=== PATIENT | female | born 1965 | race Caucasian/White ===

== ENCOUNTER 2020-12-13 09:59 | Outpatient (CLI) | payer MEDICAID, SELFPAY ==
--- NOTE | 2020-12-13 10:02 | CT_ITS ---
WS: [id number] CT ABDOMEN WITH CONTRAST HISTORY: ABDOMINAL MASS Contiguous single phase 5 mm axial imaging performed to the abdomen. Oral contrast has been provided. Coronal and sagittal reformats are submitted. All CT scans at [facility] use at least on e of these dose optimization techniques: automated exposure control; mA and/or kV adjustment per arlette ent size (includes targeted exams where dose is matched to clinical indication); or iterative reconst ruction. CONTRAST: Omnipaque 300; 95 mL IV. DLP: 866.72 mGycm COMPARISON: 12/12/2018 Lower thorax: Stable 5 mm nodule at the LEFT lung base. Heart size is normal. Small hiatal hernia. Liver: Mild hepatomegaly with moderate hepatic steatosis. No bile duct dilatation or mass. Gallbladder: Prior cholecystectomy. Pancreas: Normal. Spleen: Normal. Adrenals: Normal. Right kidney: Normal. Left kidney: Normal size kidney. Stable exophytic 10 mm nodule from the posterior superior kidney. No hydronephrosis or mass. Aorta: Mild atherosclerosis aorta. GI tract: Visualized GI tract within the abdomen is normal. There is mild constipation. No obstructiv e pattern. The appendix is visualized and normal. No adenopathy or free fluid. Abdominal wall: Large defect in the abdominal wall musculature measures 5.2 cm. Defect is above the u mbilicus contains omental fat only. Visualized osseous structures: Moderate degenerative disc disease at L5-S1. CT/CT abdomen w con* [id number] IMPRESSION: 1. Large supraumbilical abdominal wall hernia contains omental fat only. 2. Mild hepatomegaly with moderate hepatic steatosis. 3. Prior cholecystectomy.
[2020-12-13] MEDS: iohexol 300 mg/mL 50 mL Btl PO (10:42)
[2020-12-13] MEDS: iohexol 300 mg/mL 100 mL Btl IV (10:57)
== END 2020-12-13 10:00 | disposition home or self-care (01) ==
LOC: RADWPI 10:02
PROVIDERS: PCP Nurse Practitioner Family; Visit Provider Nurse Practitioner Family
DX: R19.00 Intra-abdominal and pelvic swelling, mass and lump, unspecified site (principal); K43.9 Ventral hernia without obstruction or gangrene; R16.0 Hepatomegaly, not elsewhere classified; K76.0 Fatty (change of) liver, not elsewhere classified; Z90.49 Acquired absence of other specified parts of digestive tract
CPT/HCPCS: 74160; Q9967

== ENCOUNTER 2021-01-11 14:43 | Outpatient (CLI) | payer MEDICAID, SELFPAY ==
--- NOTE | 2021-01-11 14:49 | MM_ITS ---
WS: [id number] BILATERAL SCREENING DIGITAL MAMMOGRAM WITH CAD HISTORY: SCREENING COMPARISON: 06/17/2019, 06/16/2018 and 06/08/2018 Bilateral CC and MLO views submitted. Computer aided detection analyzed. Breast composition: There are scattered areas of fibroglandular density. No suspicious masses, microc alcifications or architectural distortion. Lymph nodes in the upper outer quadrant of the LEFT breast have been stable since 2018. MM/[place] [id number] IMPRESSION: BI-RADS: 2-Benign FOLLOW UP: 1 Year Follow-up
== END 2021-01-11 14:44 | disposition home or self-care (01) ==
PROVIDERS: PCP Nurse Practitioner Family; Visit Provider Nurse Practitioner Family
DX: Z12.31 Encounter for screening mammogram for malignant neoplasm of breast (principal)
CPT/HCPCS: 77067

== ENCOUNTER 2021-06-18 16:23 | Emergency (ER) | payer MEDICAID, SELFPAY ==
[2021-06-18 16:29] VITALS: BP 160/87; PULSE 87; RESP 18; TEMP 37.1; O2SAT 99; BMI 40.3
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
--- NOTE | 2021-06-18 16:49 | CTR_ITS ---
PROCEDURE INFORMATION: Exam: CT Abdomen And Pelvis With Contrast Exam date and time: 06/18/2021 4:49 PM Age: 55 years old Clinical indication: Abdominal pain; Prior surgery; Additional info: Abd pain TECHNIQUE: Imaging protocol: Computed tomography of the abdomen and pelvis with contrast. Radiation optimization: All CT scans at this facility use at least one of these dose optimization techniques: automated exposure control; mA and/or kV adjustment per patient size (includes targeted exams where dose is matched to clinical indication); or iterative reconstruction. Contrast material: OMNI 300; Contrast volume: 95 ml; Contrast route: INTRAVENOUS (IV); COMPARISON: CT abdomen w con* [id number] 12/13/2020 10:52 AM RADIATION DOSE METRICS: Total DLP (mGy-cm): 1892.9 FINDINGS: Heart: The heart is partially visualized and there appears to be lipomatosis hypertrophy of the interatrial septum. Liver: Normal. No mass. Gallbladder and bile ducts: Cholecystectomy clips. No ductal dilation. Pancreas: Normal. No ductal dilation. Spleen: Normal. No splenomegaly. Adrenal glands: Normal. No mass. Kidneys and ureters: A few scattered probable subcentimeter cysts within both kidneys. No hydronephrosis. Stomach and bowel: Colonic diverticulosis predominantly centered within the left hemicolon. No evidence of diverticulitis. No evidence of bowel obstruction. Appendix: No evidence of appendicitis. Intraperitoneal space: Unremarkable. No free air. No significant fluid collection. Vasculature: Unremarkable. No abdominal aortic aneurysm. Lymph nodes: Unremarkable. No enlarged lymph nodes. Urinary bladder: Unremarkable as visualized. Reproductive: Unremarkable as visualized. Bones/joints: No acute fracture. Degenerative disc disease at L5-S1. Soft tissues: There is an 8.0 x 4.7 cm fat containing periumbilical hernia with the hernia neck measuring [address]/CT abdomen pelvis w con* [id number] IMPRESSION: 1. No acute findings. 2. Fat containing periumbilical hernia. COMMENTS: Consistent with the [employer]'s Incidental Findings Committee white paper (J Am Roma Radiol 2018): Any incidental renal lesion less than 1 cm or classified as too small to characterize, or any incidental cystic renal lesion characterized as simple-appearing, is likely benign. No follow-up imaging is recommended for these lesions per consensus recommendations based on imaging criteria. Radiation Dose CTDIVOL = (mGy): DLP = 1892.9 (mGy-cm)
--- NOTE | 2021-06-18 16:50 | USR_ITS ---
PROCEDURE INFORMATION: Exam: US Duplex Left Lower Extremity Veins, Limited Exam date and time: 06/18/2021 4:50 PM Age: 55 years old Clinical indication: Pain and injury or trauma; Fall; Other injury to vessels; Left; Lower extremity, lower leg level; Other superficial vein; Leg, lower; Additional info: Pain swelling TECHNIQUE: Imaging protocol: Real-time Duplex ultrasound of the Left Lower Extremity with 2-D sweet scale, color Doppler flow and spectral waveform analysis with image documentation. Limited exam focused on the left lower extremity veins. COMPARISON: CR (LOW EXM, ) 06/18/2021 4:55 PM FINDINGS: Left deep veins: Unremarkable. The common femoral, femoral, proximal profunda femoral and popliteal veins are patent without thrombus. Normal Doppler waveforms. Normal compressibility and/or augmentation response. Left superficial veins: Unremarkable. Saphenofemoral junction is patent without thrombus. Soft tissues: Unremarkable. US/[place] [id number] IMPRESSION: No evidence of deep vein thrombosis.
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
[2021-06-18 17:39] LABS: Basophils % 0.4 %; Eosinophils # 0.3 10^3/uL (0.0-0.8); Eosinophils % 2.9 %; Hematocrit 37.1 % (37.0-47.0); Hemoglobin 11.9 g/dL (11.5-15.3); Lymphocytes # 2.7 10^3/uL (0.8-4.8); Lymphocytes % 23.7 %; Mean Corpuscular HGB Conc 32.1 g/dL (30.0-36.0); Mean Corpuscular Hemoglobin 26.3 pg (28.0-34.0); Mean Corpuscular Volume 81.9 fl (81-99); Mean Platelet Volume 11.6 fL (7.4-10.4); Neutrophils # 7.22 10^3/uL (1.8-7.7); Neutrophils % 63.5 %; Nucleated Red Blood Cells % 0 %; Platelet Count 303 10^3/cmm (130-400); Red Blood Count 4.53 10^6/uL (4.1-5.3); Red Cell Distribution Width 14.3 % (12.1-15.1); White Blood Count 11.4 10^3/uL (4.0-10.0)
[2021-06-18] MEDS: tetanus-dipt-pertussis 0.5 mL SDV IM (17:43)
[2021-06-18 17:59] LABS: Urine Appearance Hazy (CLEAR); Urine Color Amber (Yellow)
[2021-06-18 18:00] LABS: Add Urine Microscopic? YES; Bilirubin Urine 1+ (Negative); Blood Urine Neg (Negative); Glucose Urine UA Norm (Normal); Ketones Urine Negative (Negative); Leukocyte Esterase Urine 1+ (Negative); Nitrate Urine Negative (Negative); Protein Urine Neg (Negative); RBC Urine 0-4 /hpf (0-2); Urobilinogen Urine 1 mg/dL (Negative); pH Urine 5 (5-7)
[2021-06-18 18:01] LABS: Add Urine Culture? Yes; Bacteria Urine 2+ /hpf; Mucus Urine 1+ /hpf; Transitional Epi Cells Urine 0-4 /hpf
[2021-06-18 18:02] LABS: Alanine Aminotransferase 20 U/L (0-33); Albumin Level 3.9 g/dL (3.5-5.2); Alkaline Phosphatase 136 IU/L (35-105); Anion Gap 13.8 (5-19); Aspartate Amino Transferase 22 U/L (0-32); Blood Urea Nitrogen 12 mg/dL (6-20); Calcium 9.3 mg/dL (8.5-10.5); Carbon Dioxide 30 mmol/L (22-29); Chloride 97 mmol/L (98-107); Glucose 99 mg/dL (65-115); Osmolality Calculated 284 mOsm/kg (285-295); Potassium 3.8 mmol/L (3.5-5.1); Sodium 137 mmol/L (136-145); Total Bilirubin 0.3 mg/dL (0.15-1.2); Total Protein 6.9 g/dL (6.6-8.7)
[2021-06-18] MEDS: iohexol 300 mg/mL 100 mL Btl IV (18:14)
[2021-06-18 21:40] VITALS: BP 144/80
== END 2021-06-18 19:05 | disposition home or self-care (01) ==
PROVIDERS: Family Medicine; Emergency Provider Emergency Medicine; PCP Nurse Practitioner Family
DX: K42.9 Umbilical hernia without obstruction or gangrene (principal); L03.116 Cellulitis of left lower limb; S40.812A Abrasion of left upper arm, initial encounter; S40.811A Abrasion of right upper arm, initial encounter; F17.210 Nicotine dependence, cigarettes, uncomplicated; X03.3XXA Fall due to controlled fire, not in building or structure, initial encounter; Z23 Encounter for immunization
CPT/HCPCS: 73562; 73590; 73610; 74177; 80053; 81001; 85025; 87086; 90471; 90715; 93971; 99283; Q9967

== ENCOUNTER 2023-07-01 03:18 | Emergency (ER) | payer MEDICAID, SELFPAY ==
[2023-07-01 03:22] VITALS: PULSE 87; RESP 18; TEMP 36.6; O2SAT 96; BMI 41.9
[2023-07-01 03:27] VITALS: BP 189/84
--- NOTE | 2023-07-01 03:30 | XRR_ITS ---
PROCEDURE INFORMATION: Exam: XR Chest Exam date and time: 07/01/2023 3:34 AM Age: 57 years old Clinical indication: Cough and shortness of breath and other: Congestion; Patient HX: Cough, congestion, mild SOB TECHNIQUE: Imaging protocol: Radiologic exam of the chest. Views: 1 view. COMPARISON: CR XR chest 1V [id number] 12/17/2018 9:45 AM FINDINGS: Lungs: Hyperinflation and interstitial prominence. Pleural spaces: No pleural effusion. Heart/Mediastinum: Epicardial fat, without cardiomegaly. Vasculature: Calcification of the thoracic aorta. Bones/joints: Unremarkable. When correlating with the previous study, no significant interval changes are present. XR/XR chest 1V portable [id number] IMPRESSION: Hyperinflation and interstitial prominence.
--- NOTE | 2023-07-01 03:36 | ED_ITS ---
HPI - URI/Sore Throat General: Chief Complaint: Upper Respiratory Infection Stated Complaint: WANTS COVID TEST Time Seen by Provider: 07/01/23 03:30 Source: patient Mode of arrival: ambulatory Limitations: no limitations History of Present Illness: 57-year-old female states she believes she was exposed to someone with COVID 2 days ago she states since then she has had cough along with nasal congestion body aches and a sore throat. She had no severe shortness of breath she is in no distress here pulse ox is normal. She denies any fevers denies any chest pain. Denies any worsening proving factors. Associated symptoms: Reports chills; Deny abdominal pain, chest pain, diarrhea, fever(s), headache(s), nausea or vomiting Review of Systems Const: Reports: chills and body aches; Denies: fever(s) or change in appetite Eyes: Denies: eye discomfort ENMT: Reports: throat pain; Denies: dental pain Card: Denies: chest pain Resp: Reports: non-productive cough; Denies: dyspnea GI: Denies: abdominal pain, nausea, vomiting or diarrhea : Denies: dysuria Musc: Denies: neck pain or back pain Skin/Breast: Denies: rash Neuro: Denies: headache(s) PFSH ED PFSH: Family History Denies family history of Anesthesia complication Bleeding disorder Social History Smoking and tobacco status: current every day smoker cigarettes Packs smoked per day: 1 Physical Exam Const: COMMON NORMALS: no acute distress, patient oriented x3 and healthy appearing HENMT: COMMON NORMALS: normocephalic and atraumatic HEAD & SCALP: normocephalic and atraumatic THROAT: posterior oropharynx normal Eye: COMMON NORMALS: conjunctivae normal CONJUNCTIVA: Yes conjunctivae normal Neck/C-Spine: COMMON NORMALS: full ROM and supple Chest: COMMONS NORMALS: normal inspection of the chest Resp: COMMON NORMALS: normal respiratory effort, No retractions, No use of accessory muscles and clear to auscultation bilaterally AUSCULTATION: clear to auscultation bilaterally Cardio: COMMON NORMALS: regular rate, regular rhythm and No murmurs present (Cardio) RATE: regular rate RHYTHM: regular rhythm GI: COMMON NORMALS: Normal to inspection, nondistended, normoactive bowel sounds present, Soft to palpation, non-tender and no masses PALPATION: Yes Soft to palpation Extremity: COMMON NORMALS: normal to inspection and full ROM Neuro: COMMON NORMALS: patient oriented x3, moves all extremities and no focal motor deficits Psych: COMMON NORMALS: mental status grossly normal, Normal thought process present and cooperative THOUGHT PROCESS: Normal thought process present Skin: COMMON NORMALS: no rashes or lesions noted and no wounds GENERAL SKIN EXAM: no rashes or lesions noted Course Vital Signs: Vital signs: Vital Signs Temperature 97.9 F 07/01/23 03:22 Pulse Rate 87 07/01/23 03:22 Respiratory Rate 18 07/01/23 03:22 Blood Pressure 189/84 07/01/23 03:27 Pulse Oximetry 96 07/01/23 03:22 Oxygen Delivery Me thod Room Air 07/01/23 03:22 MDM - URI/Sore Throat Medical Decision Making Patient presents here with cough congestion did test positive for COVID she is not hypoxic here she she is stable for discharge she is to follow-up with PCP a nd return if worsening. Medical Records I reviewed the patient's medical records. Lab Data I reviewed the patient's lab results. Laboratory Results SARS-CoV-2 Ag (Rapid) Positive (Negative) H 07/01/23 03:30 XR interpretation done by ED provider, pending radiology final review ED provider radiology interpretation(s): xr chest: no acute abnormality Discharge Plan Discharge Patient Disposition: Home Clinical Impression: COVID-19 Condition: Stable Prescriptions: No Action omeprazole 20 mg capsule,delayed release(DR/EC) 20 mg PO DAILY cyanocobalamin (vitamin B-12) 1,000 mcg capsule 1,000 mcg PO DAILY amlodipine 5 mg tablet 5 mg PO DAILY simvastatin 10 mg tablet 10 mg PO DAILY hydrochlorothiazide 25 mg tablet 25 mg PO DAILY Discharge Orders: Discharge ED (Routine); Ordered 07/01/23 Ordered By: Krupa Reyes Referrals: Emma Michel SKIVING MACHINE OPERATOR [Primary Care Provider] - 1-3 days Discharge Diet: Advance as tolerated Discharge Activity: Resume usual activity Patient Instructions: COVID-19 (Coronavirus Disease 2019) (ED) Coding Level of Care Code ED Child Adolescent Psychiatrist for Clementine Albright
[2023-07-01 04:15] LABS: SARS Covid-2 Antigen Positive (Negative)
[2023-07-01 04:22] VITALS: BP 189/84; PULSE 87; RESP 18; TEMP 36.6; O2SAT 96
== END 2023-07-01 04:22 | disposition home or self-care (01) ==
PROVIDERS: Emergency Provider Emergency Medicine; PCP Nurse Practitioner Family
DX: U07.1 COVID-19 (principal); F17.210 Nicotine dependence, cigarettes, uncomplicated
CPT/HCPCS: 71045; 87426; 99284

== ENCOUNTER 2024-01-09 20:08 | Emergency (ER) | payer MEDICAID, SELFPAY ==
[2024-01-09 20:13] VITALS: BP 174/80; PULSE 85; RESP 16; TEMP 37; O2SAT 99; BMI 40.3
--- NOTE | 2024-01-09 20:53 | W.ED.EXTPRO ---
HPI - Extremity Problem General: Chief complaint: Extremity Problem,Nontraumatic Stated complaint: Rt Upper Pain shoulder Time Seen by Provider: 01/09/24 20:52 History of Present Illness: 58-year-old female comes in today with right shoulder pain. Patient reports pain for the last 2 weeks. Patient reports pain is increased with movement. Patient appears nontoxic. Patient puts her arm into abduction she has increasing pain and discomfort. Patient also reports coughing and laughing will aggravate the pain. Patient denies any cardiac disease. Patient does have a history of gallbladder removal. Patient takes medications for high blood pressure. Review of Systems General: Reports: 10 or more systems reviewed and unremarkable except in HPI and below Musc: Reports: joint pain (Right shoulder) [facility] ED PFSH: Family History Denies family history of Anesthesia complication Bleeding disorder Social History Smoking and tobacco/nicotine status: current every day tobacco/nicotine user cigarettes Packs smoked per day: 1 Physical Exam Const: COMMON NORMALS: alert HENMT: COMMON NORMALS: normocephalic HEAD & SCALP: normocephalic Neck/C-Spine: COMMON NORMALS: full ROM Chest: CHEST: Yes tenderness (Right anterior chest wall) Resp: COMMON NORMALS: normal respiratory effort and clear to auscultation bilaterally AUSCULTATION: clear to auscultation bilaterally Cardio: COMMON NORMALS: regular rate and regular rhythm RATE: regular rate RHYTHM: regular rhythm GI: COMMON NORMALS: Soft to palpation and non-tender PALPATION: Yes Soft to palpation Back/Pelvis: COMMON NORMALS: thoracic and lumbar spine normal to inspection THORACIC SPINE/UPPER BACK: Yes paraspinal muscle tenderness (Infrascapular) Extremity: COMMON NORMALS: normal to inspection and full ROM Neuro: SENSORIUM/ORIENTATION: Yes alert Skin: COMMON NORMALS: turgor normal GENERAL SKIN EXAM: turgor normal Course Vital Signs: Vital signs: Vital Signs Temperature 98.6 F 01/09/24 20:13 Pulse Rate 85 01/09/24 20:13 Respiratory Rate 16 01/09/24 20:13 Blood Pressure 174/80 01/09/24 20:13 Pulse Oximetry 99 01/09/24 20:13 Oxygen Delivery Me thod Room Air 01/09/24 20:13 MDM - Extremity (Nontraumatic) Medical Decision Making 58-year-old female comes in today with complaints of right chest wall and right shoulder pain. Patient states pain has been going on for 1 to 2 weeks. Pain is aggravated with movement. Patient appears nontoxic. Respirations are even lungs are clear to auscultation. No edema is noted in the extremities. Differential diagnosis includes but not limited to pneumonia, costochondritis, infrascapular pain, rotator cuff injury, shoulder strain. X-ray of the chest and shoulder were unremarkable. Reviewed exam with patient recommended treatment for scapular costal syndrome. Recommend ice and heat along with NSAIDs. Patient was written for a few hydrocodone for severe pain control. Patient reported understanding of care plan need for follow-up or return to the ER. XR interpretation done by ED provider, pending radiology final review Discharge Plan Discharge Patient Disposition: Home Clinical Impression: Scapulocostal syndrome, right Condition: Stable Prescriptions: New naproxen 500 mg tablet 500 mg PO BID Qty: 20 0RF hydrocodone-acetaminophen 5-325 mg tablet 1 tab PO Q8H PRN (Reason: pain (scale score 7-10)) Qty: 7 0RF No Action omeprazole 20 mg capsule,delayed release(DR/EC) 20 mg PO DAILY cyanocobalamin (vitamin B-12) 1,000 mcg capsule 1,000 mcg PO DAILY amlodipine 5 mg tablet 5 mg PO DAILY simvastatin 10 mg tablet 10 mg PO DAILY hydrochlorothiazide 25 mg tablet 25 mg PO DAILY Discharge Orders: Discharge ED (Routine); Ordered 01/09/24 Ordered By: Nirav Arnold Referrals: Emma Michel FNP [Primary Care Provider] - Discharge Diet: Usual diet Discharge Activity: Increase activity as tolerated Patient Instructions: Musculoskeletal Pain (ED) Activity Restrictions/Additional Instructions: Home and rest. Activity as tolerated. Use ice or heat to help with pain. Take naproxen 500 mg 2 times a day to help with pain and inflammation. Use hydrocodone for severe pain. Follow-up with primary care in 3 to 5 days for recheck. Return to ED for new concerns. Coding Level of Care Code ED Nut Roaster for Clementine Albright
--- NOTE | 2024-01-09 20:59 | XRR_ITS ---
PROCEDURE INFORMATION: Exam: XR Right Shoulder Exam date and time: 01/09/2024 9:15 PM Age: 58 years old Clinical indication: Right; Patient HX: RT shoulder/anterior chest pain; No known injury TECHNIQUE: Imaging protocol: Radiologic exam of the right shoulder. Views: 2 or more views. COMPARISON: CR (CHEST, ) 01/09/2024 9:15 PM FINDINGS: Bones/joints: Right posterior 3rd rib fracture. The bones of the right shoulder are intact. There is no evidence of acute fracture or dislocation. Alignment is within normal limits. Soft tissues: Normal. XR/XR shoulder RT min 2V* [id number] IMPRESSION: 1. Intact right shoulder. 2. Third posterior right rib fracture.
--- NOTE | 2024-01-09 20:59 | XRR_ITS ---
PROCEDURE INFORMATION: Exam: XR Chest Exam date and time: 01/09/2024 9:15 PM Age: 58 years old Clinical indication: Angina pectoris; Patient HX: RT shoulder/anterior chest pain; No known injury TECHNIQUE: Imaging protocol: Radiologic exam of the chest. Views: 1 view. COMPARISON: CR XR chest 1V portable [id number] 07/01/2023 3:34 AM FINDINGS: Lungs: Mild interstitial prominence is stable and may be in part related to artifact from underpenetration and body habitus. No consolidation. Pleural spaces: Unremarkable. No pleural effusion. No pneumothorax. Heart/Mediastinum: The mediastinum is stable in appearance. Vasculature: Atherosclerotic calcifications of the aorta are noted. Bones/joints: Unremarkable. XR/XR chest 1V portable [id number] IMPRESSION: Impression new. No acute cardiopulmonary disease.
[2024-01-09] MEDS: HYDROcodone-acetaminophen 7.5-325 mg Tablet 1 TAB PO (21:33)
[2024-01-09] MEDS: dexamethasone 10 mg/mL INJ IM (21:33)
[2024-01-09] MEDS: ketorolac 30 mg/mL INJ IM (21:33)
== END 2024-01-09 21:58 | disposition home or self-care (01) ==
PROVIDERS: Emergency Provider Nurse Practitioner Family; PCP Nurse Practitioner Family
DX: G56.81 Other specified mononeuropathies of right upper limb (principal); F17.210 Nicotine dependence, cigarettes, uncomplicated
CPT/HCPCS: 71045; 73030; 96372; 99284; J1100; J1885

== ENCOUNTER 2024-06-29 07:50 | Emergency (ER) | payer MEDICAID, SELFPAY ==
[2024-06-29] VITALS (7 sets, daily range): BP systolic 130–216; BP diastolic 70–122; PULSE 63–88; RESP 18–20; TEMP 36.6; O2SAT 94–100; BMI 34.7
--- NOTE | 2024-06-29 08:06 | CT_ITS ---
WS: [id number] CT ABDOMEN PELVIS TECHNIQUE: Noncontrast CT of the abdomen and pelvis with coronal and sagittal reformatted images. CLINICAL INFORMATION: Abdominal pain COMPARISON: DLP: 1406.[address] scans at [facility] use at least one of these dose optimization techniques: automated e xposure control; mA and/or kV adjustment per patient size (includes targeted exams where dose is matc hed to clinical indication); or iterative reconstruction. FINDINGS:2020 [place] fat-containing supraumbilical hernia unchanged compared to previous. No herni ated bowel. Additional adjacent fat-containing periumbilical hernia with a narrow neck with a small a mount of herniated fat with associated induration. Additional tiny fat-containing umbilical hernia. Sigmoid diverticulosis. Normal appendix in the RIGHT lower quadrant. No evidence of acute appendiciti s. Fatty atrophy of the pancreas. Noncontrast spleen is normal. Small esophageal hernia. Adrenal glan ds are normal. Normal noncontrast liver. Cholecystectomy. Small esophageal hiatal hernia. Normal noncontrast spleen. Tiny noncalcified nodules LEFT lower lobe largest measuring 5 mm stable since 2020. 1.4 cm exophytic slightly increased attenuation LEFT renal lesion technically indeterminant. This cou ld be followed up with ultrasound. CT/CT abdomen pelvis wo con [id number] IMPRESSION: 1. No hydronephrosis in either kidney. No obstructing renal or ureteral calcul i. 2. Sigmoid diverticulosis. No evidence of acute diverticulitis. 3. Small esophageal hernia. 4. [place] fat-containing supraumbilical hernia. No herniated bowel. 5. Additional adjacent smaller periumbilical hernia with a small amount of ind uration with herniated fat and narrow neck. Additional tiny fat-containing umbi lical hernia. 6. 3 fat-containing hernias in total. 7. 1.4 cm exophytic slightly increased attenuation LEFT renal lesion technical ly indeterminant. This could be followed up with ultrasound. This is increased in size compared to 2020.
--- NOTE | 2024-06-29 08:07 | XRR_ITS ---
PROCEDURE INFORMATION: Exam: XR Chest Exam date and time: 06/29/2024 8:14 AM Age: 58 years old Clinical indication: Pain; Cough and dyspnea; Angina pectoris; Prior surgery; Surgery date: 6+ months; Surgery type: Gb; Additional info: Dyspnea/cough TECHNIQUE: Imaging protocol: Radiologic exam of the chest. Views: 1 view. COMPARISON: CR XR chest 1V portable [id number] 01/09/2024 9:15 PM FINDINGS: Lungs: Unremarkable. No consolidation. Pleural spaces: Unremarkable. No pleural effusion. No pneumothorax. Heart/Mediastinum: The heart is enlarged. There is calcified plaque involving the aorta. Bones/joints: Unremarkable. XR/XR chest 1V portable [id number] IMPRESSION: 1. Cardiomegaly.
--- NOTE | 2024-06-29 08:07 | ECG_ITS ---
[facility] Test Date: 2024-06-29 Pat Name: Taylor Stokes Department: Room: Gender: Female [place] Diver: : 1965 Requested By: Jared Box Order Number: [id number] Jody MD: Vince Quintero M.D. Measurements Intervals [place] Rate: 57 P: -84 AL: 147 QRS: 15 QRSD: 85 T: 69 QT: 410 QTc: 402 Interpretive Statements ECTOPIC ATRIAL BRADYCARDIA ABNORMAL RHYTHM ECG Compared to ECG 12/12/2018 11:51:15 Bradycardia, nonsinus now present Sinus rhythm no longer present Electronically Signed On 06-29-2024 23:05:41 CDT by Vince Quintero M.D. [email or web address]
[2024-06-29 08:15] LABS: Basophils % 0.4 %; Eosinophils # 0.1 10^3/uL (0.0-0.8); Hematocrit 45.4 % (36-47); Lymphocytes # 2.1 10^3/uL (0.8-4.8); Lymphocytes % 19.6 %; Mean Corpuscular HGB Conc 32.2 g/dL (30-55); Mean Corpuscular Hemoglobin 27.8 pg (27-33); Mean Corpuscular Volume 86.3 fl (85-98); Mean Platelet Volume 11.3 fL (7.4-10.4); Monocytes # 0.8 10^3/uL (0.2-0.9); Monocytes % 7.7 %; Neutrophils # 7.76 10^3/uL (1.8-7.7); Neutrophils % 71.1 %; Nucleated Red Blood Cells % 0 %; Platelet Count 223 10^3/cmm (157-399); Red Blood Count 5.26 10^6/uL (3.85-5.65); Red Cell Distribution Width 13.2 % (12.1-15.1); White Blood Count 10.91 10^3/uL (3.29-11.43)
[2024-06-29] MEDS: sodium chloride 0.9% 1,000 ML 999 ML IV (08:23)
[2024-06-29 08:38] LABS: Alanine Aminotransferase 28 U/L (0-33); Albumin Level 4.2 g/dL (3.5-5.2); Alkaline Phosphatase 129 U/L (35-105); Anion Gap 14.1 (5-19); Aspartate Amino Transferase 25 U/L (0-32); Blood Urea Nitrogen 9 mg/dL (8-23); Calcium 9.4 mg/dL (8.5-10.5); Carbon Dioxide 28 mmol/L (22-29); Chloride 98 mmol/L (98-107); Creatinine Clr Calc Pharmacy 117.4083; Globulin 3.6 g/dL (1.3-4.6); Glucose 118 mg/dL (65-115); Lipase 20 U/L (13-60); Osmolality Calculated 282 mOsm/kg (285-295); Potassium 4.1 mmol/L (3.5-5.1); Sodium 136 mmol/L (136-145); Total Bilirubin 0.4 mg/dL (0.15-1.2); Total Protein 7.8 g/dL (6.6-8.7)
--- NOTE | 2024-06-29 08:46 | ED_ITS ---
HPI - Abdominal Pain 2 General: Chief Complaint: Abdominal Pain Stated Complaint: LT abd pain Time Seen by Provider: 06/29/24 07:54 History of Present Illness: 58-year-old female presents emergency ro om, left upper quadrant pain that began yesterday from bothering her overnight. Radiates on the umbilicus. Patient states she is not having any diarrhea. She not taken any of her blood pressure medications for the last couple of days she denies chest pain or shortness of breath no dysuria urgency or frequency no hematuria no hematochezia melena hematemesis coffee-ground emesis. She has a history of diverticulosis, she has had colon polyps removed, she has also had a cholecystectomy. Associated Symptoms: Reports bloating, GI cramping and nausea; Denies chills, dysuria and fever(s) Related Data Home Medications Medication Instructions Recorded Confirmed amlodipine 5 mg tablet 5 mg PO DAILY 01/03/21 06/29/24 cyanocobalamin (vitamin B-12) 1,000 mcg PO DAILY PRN unknown 01/03/21 06/29/24 1,000 mcg capsule hydrochlorothiazide 25 mg tablet 25 mg PO DAILY 01/03/21 06/29/24 omeprazole 20 mg capsule,delayed 20 mg PO DAILY PRN Acid Reflux 01/03/21 06/29/24 release simvastatin 10 mg tablet 10 mg PO DAILY 01/03/21 06/29/24 Previous Rx's Medication Instructions Recorded hydrocodone 5 mg-acetaminophen 325 1 tab PO Q6H PRN pain #20 tabs 06/29/24 mg tablet promethazine 25 mg tablet 25 mg PO Q6H PRN nausea and 06/29/24 vomiting #20 tabs Allergies Allergy/AdvReac Type Severity Reaction Status Date / Time No Known Allergies Allergy Verified 07/01/23 03:25 Review of Systems 2 Const: Denies: fever(s) or chills Card: Denies: chest pain Resp: Denies: dyspnea GI: Reports: abdominal pain, nausea, bloating and GI cramping : Denies: dysuria, urinary frequency or urinary urgency Musc: Denies: neck pain or back pain Skin/Breast: Denies: rash PFSH ED 2 PFSH: Family History Denies family history of Anesthesia complication Bleeding disorder Social History Smoking and tobacco/nicotine status: current every day tobacco/nicotine user cigarettes Packs smoked per day: 1 Physical Exam 2 Const: GENERAL APPEARANCE: cooperative ORIENTATION/CONSCIOUSNESS: Yes awake, Yes oriented to person, Yes oriented to place and Yes oriented to time HENMT: COMMON NORMALS: normocephalic, atraumatic and hearing grossly normal bilaterally HEAD & SCALP: normocephalic and atraumatic Resp: COMMON NORMALS: normal respiratory effort, No retractions, No use of accessory muscles and clear to auscultation bilaterally AUSCULTATION: clear to auscultation bilaterally Cardio: COMMON NORMALS: regular rate, regular rhythm and No murmurs present (Cardio) RATE: regular rate RHYTHM: regular rhythm GI: COMMON NORMALS: No hepatosplenomegaly present AUSCULTATION: Yes normoactive bowel sounds PALPATION: Yes Tenderness to palpation present (GI) (Periumbilical), No Guarding due to palpation present (GI) and Yes No hepatosplenomegaly present OTHER: Prominent size hiatal hernia with palpable defect small superficial periumbilical hernia noted as well difficult to reduce that. Extremity: COMMON NORMALS: normal to inspection, capillary refill normal, no clubbing, cyanosis or edema, no calf tenderness and no pedal edema Neuro: SENSORIUM/ORIENTATION: Yes oriented to person, Yes oriented to place and Yes oriented to time Skin: COMMON NORMALS: no rashes or lesions noted GENERAL SKIN EXAM: no rashes or lesions noted Course 2 Vital Signs: Vital signs: Vital Signs Temperature 97.8 F 06/29/24 07:56 Pulse Rate 81 06/29/24 12:34 Respiratory Rate 20 H 06/29/24 12:34 Blood Pressure 130/82 06/29/24 12:34 Pulse Oximetry 94 06/29/24 12:34 Oxygen Delivery Me thod Room Air 06/29/24 12:34 MDM - Abdominal Pain Medical Decision Making Patient presents with abdominal discomfort radiating to the left side of her abdomen. CT does not show any acute findings other than a hernia. Consult with Dr. Alvarado. Dr. Alvarado was able to reduce the hernia. Did cause severe amount of discomfort patient was given morphine and Zofran. Dr. Alvarado recommends that we discharge patient home and follow-up with him in the office tomorrow with him in the office. Clear liquid diet until his follow-up tomorrow. Medical Records I reviewed the patient's medical records. Lab Data I reviewed the patient's lab results. 06/29/24 08:09 06/29/24 08:09 Labs/Radiology: Radiology Impressions Abdomen/Pelvis CT 06/29/24 08:06 IMPRESSION: 1. No hydronephrosis in either kidney. No obstructing renal or ureteral calculi. 2. Sigmoid diverticulosis. No evidence of acute diverticulitis. 3. Small esophageal hernia. 4. [place] fat-containing supraumbilical hernia. No herniated bowel. 5. Additional adjacent smaller periumbilical hernia with a small amount of induration with herniated fat and narrow neck. Additional tiny fat-containing umbilical hernia. 6. 3 fat-containing hernias in total. 7. 1.4 cm exophytic slightly increased attenuation LEFT renal lesion technically indeterminant. This could be followed up with ultrasound. This is increased in size compared to 2020. Chest X-Ray 06/29/24 08:07 IMPRESSION: 1. Cardiomegaly. Laboratory Results WBC 10.91 10^3/uL (3.29-11.43) 06/29/24 08:09 RBC 5.26 10^6/uL (3.85-5.65) 06/29/24 08:09 Hgb 14.60 g/dL (11.27-16.99) 06/29/24 08:09 Hct 45.4 % (36-47) 06/29/24 08:09 MCV 86.3 fl (85-98) 06/29/24 08:09 MCH 27.8 pg (27-33) 06/29/24 08:09 MCHC 32.2 g/dL (30-55) 06/29/24 08:09 RDW 13.2 % (12.1-15.1) 06/29/24 08:09 Plt Count 223 10^3/cmm (157-399) 06/29/24 08:09 MPV 11.3 fL (7.4-10.4) H 06/29/24 08:09 Neut % (Auto) 71.1 % 06/29/24 08:09 Lymph % (Auto) 19.6 % 06/29/24 08:09 [place] % (Auto) 7.7 % 06/29/24 08:09 Eos % (Auto) 1.0 % 06/29/24 08:09 Baso % (Auto) 0.4 % 06/29/24 08:09 Neut # (Auto) 7.76 10^3/uL (1.8-7.7) H 06/29/24 08:09 Lymph # (Auto) 2.1 10^3/uL (0.8-4.8) 06/29/24 08:09 [place] # (Auto) 0.8 10^3/uL (0.2-0.9) 06/29/24 08:09 Eos # (Auto) 0.1 10^3/uL (0.0-0.8) 06/29/24 08:09 Baso # (Auto) 0.0 10^3/uL (0.0-0.1) 06/29/24 08:09 Nucleated RBC % (auto) 0 % 06/29/24 08:09 Nucleated RBCs # 0.0 /100WBC 06/29/24 08:09 Sodium 136 mmol/L (136-145) 06/29/24 08:09 Potassium 4.1 mmol/L (3.5-5.1) 06/29/24 08:09 Chloride 98 mmol/L (98-107) 06/29/24 08:09 Carbon Dioxide 28 mmol/L (22-29) 06/29/24 08:09 Anion Gap 14.1 (5-19) 06/29/24 08:09 BUN 9 mg/dL (8-23) 06/29/24 08:09 Creatinine 0.6 mg/dL (0.5-0.9) 06/29/24 08:09 GFR Calculation 102.0 mL/min (90-130) 06/29/24 08:09 Glucose 118 mg/dL (65-115) H 06/29/24 08:09 Calculated Osmolality 282 mOsm/kg (285-295) L 06/29/24 08:09 Lactic Acid 1.0 mmol/L (0.5-2.2) 06/29/24 08:09 Calcium 9.4 mg/dL (8.5-10.5) 06/29/24 08:09 Magnesium 2.0 mg/dL (1.7-2.3) 06/29/24 08:09 Total Bilirubin 0.4 mg/dL (0.15-1.2) 06/29/24 08:09 AST 25 U/L (0-32) 06/29/24 08:09 ALT 28 U/L (0-33) 06/29/24 08:09 Alkaline Phosphatase 129 U/L (35-105) H 06/29/24 08:09 Total Protein 7.8 g/dL (6.6-8.7) 06/29/24 08:09 Albumin 4.2 g/dL (3.5-5.2) 06/29/24 08:09 Globulin 3.6 g/dL (1.3-4.6) 06/29/24 08:09 Lipase 20 U/L (13-60) 06/29/24 08:09 Urine Color Yellow (Yellow) 06/29/24 09:50 Urine Appearance Clear (CLEAR) 06/29/24 09:50 Urine pH 8.0 (5-7) A 06/29/24 09:50 Ur Specific [place] 1.015 (1.005-1.030) 06/29/24 09:50 Urine Protein Negative (Negative) 06/29/24 09:50 Urine Glucose (UA) Negative (Normal) 06/29/24 09:50 Urine Ketones Negative (Negative) 06/29/24 09:50 Urine Blood Negative (Negative) 06/29/24 09:50 Urine Nitrate Negative (Negative) 06/29/24 09:50 Urine Bilirubin Negative (Negative) 06/29/24 09:50 Urine Urobilinogen 1.0 mg/dL (Negative) 06/29/24 09:50 Ur Leukocyte Esterase 1+ (Negative) A 06/29/24 09:50 Urine RBC 0-2 /hpf (0-2) 06/29/24 09:50 Urine WBC 0-5 /hpf (0-5) 06/29/24 09:50 Ur Squamous Epith Cells 0-5 /hpf (0-5) 06/29/24 09:50 Amorphous Sediment Not Reportable 06/29/24 09:50 Urine Bacteria Trace /hpf (NONE) 06/29/24 09:50 Hyaline Casts 0-4 /lpf H 06/29/24 09:50 All radiology interpretation(s) finalized by discharge Discharge Plan Discharge Patient Disposition: Home Clinical Impression: Periumbilical hernia Condition: Stable Prescriptions: New hydrocodone-acetaminophen 5-325 mg tablet 1 tab PO Q6H PRN (Reason: pain) Qty: 20 0RF promethazine 25 mg tablet 25 mg PO Q6H PRN (Reason: nausea and vomiting) Qty: 20 0RF No Action omeprazole 20 mg capsule,delayed release(DR/EC) 20 mg PO DAILY PRN (Reason: Acid Reflux) cyanocobalamin (vitamin B-12) 1,000 mcg capsule 1,000 mcg PO DAILY PRN (Reason: unknown) amlodipine 5 mg tablet 5 mg PO DAILY simvastatin 10 mg tablet 10 mg PO DAILY hydrochlorothiazide 25 mg tablet 25 mg PO DAILY Discharge Orders: Discharge ED (Routine); Ordered 06/29/24 Ordered By: Jared Connolly Referrals: Emma Michel, DOUBLE END CHUCKING MACHINE OPERATOR [Primary Care Provider] - Discharge Diet: Full LIquid Discharge Activity: Increase activity as tolerated Patient Instructions: Umbilical Hernia (ED), Opioid Safety, Pain Management Activity Restrictions/Additional Instructions: Thank you for choosing [facility] for your healthcare needs today. It is very important that you follow up as instructed or that you return to the Emergency Department should you have concerns or if your condition changes or worsens in any way. You are seen emergency room with complaint of abdominal pain laboratory test did not show significant abnormality exam and CT showed a umbilical and periumbilical hernia. These are both treated in the same way. Dr. Alvarado seen in the emergency room reduce the hernia he would like to see you tomorrow in his office. Recommend liquid diet until you follow-up with them tomorrow you are given pain and nausea medications to use as needed. If pain recurs or worsens recheck. Coding Level of Care Code ED Epitaxial Reactor Operator for Clementine Albright
--- NOTE | 2024-06-29 09:13 | PC.PHAR ---
Patient states she hasn't taken meds in a few weeks that she needs appointment to receive refills ..
[2024-06-29] MEDS: hydroCHLOROthiazide 25 mg Tablet PO (09:49)
[2024-06-29] MEDS: amlodipine 5 mg Tablet PO (09:49)
[2024-06-29] MEDS: labetalol 5 mg/mL SDV 20mL 10 MG IVP (09:49)
[2024-06-29 10:06] LABS: Bilirubin Urine Negative (Negative); Blood Urine Negative (Negative); Glucose Urine UA Negative (Normal); Ketones Urine Negative (Negative); Leukocyte Esterase Urine 1+ (Negative); Nitrate Urine Negative (Negative); Protein Urine Negative (Negative); Specific Gravity, Urine 1.015 (1.005-1.030); Urine Appearance Clear (CLEAR); Urine Color Yellow (Yellow)
[2024-06-29 10:11] LABS: Add Urine Microscopic? YES; Bacteria Urine Trace /hpf; Hyaline Casts Urine 0-4 /lpf; RBC Urine 0-2 /hpf (0-2); Squamous Epithelial Cell Urine 0-5 /hpf (0-5); WBC Urine 0-5 /hpf (0-5)
[2024-06-29 10:17] LABS: Add Urine Culture? No
[2024-06-29] MEDS: hyDRALAzine 20 mg/mL INJ 1 mL IVP (10:31)
--- NOTE | 2024-06-29 11:57 | P.CONIM_ITS ---
Providers/Reason For Consult 2 Consulting Physician/Specialty*: Dr. Ba Alvarado DO/General Surgery Reason for Consult*: Incarcerated incisional hernia Primary Care Provider: Emma Michel History of Present Illness History of Present Illness Taylor Stokes is a 58 year old female, with a history of laparoscopic tubal ligation and diagnostic laparoscopy who presented to the hospital with a 1 day history of left-sided abdominal pain. She reports that she has had an umbilical hernia for several years and has gotten larger recently. Her pain is sharp and constant. Palpation makes pain worse. Nothing makes pain better. The pain does radiate to her umbilicus. CT abdomen pelvis shows an incarcerated umbilical/incisional hernia with omentum. Review of Systems 2 General: Reports: 10 or more systems reviewed and unremarkable except in HPI and below Medications/Allergies Home Medications Medication Instructions Recorded Confirmed Last Taken Type amlodipine 5 mg tablet 5 mg PO DAILY 01/03/21 06/29/24 06/17/21 History cyanocobalamin (vitamin B-12) 1,000 mcg PO DAILY PRN unknown 01/03/21 06/29/24 06/17/21 History 1,000 mcg capsule hydrochlorothiazide 25 mg tablet 25 mg PO DAILY 01/03/21 06/29/24 06/17/21 History omeprazole 20 mg capsule,delayed 20 mg PO DAILY PRN Acid Reflux 01/03/21 06/29/24 06/17/21 History release simvastatin 10 mg tablet 10 mg PO DAILY 01/03/21 06/29/24 06/17/21 History hydrocodone 5 mg-acetaminophen 325 1 tab PO Q6H PRN pain #20 tabs 06/29/24 Unknown Rx mg tablet promethazine 25 mg tablet 25 mg PO Q6H PRN nausea and 06/29/24 Unknown Rx vomiting #20 tabs Allergies Allergy/AdvReac Type Severity Reaction Status Date / Time No Known Allergies Allergy Verified 07/01/23 03:25 PFSH Acute 2 PFSH: Family History Denies family history of Anesthesia complication Bleeding disorder Social History Smoking and tobacco/nicotine status: current every day tobacco/nicotine user cigarettes Packs smoked per day: 1 Vitals/I&O/Wt Last Vital Signs Temp 97.8 F 06/29/24 07:56 Pulse 88 06/29/24 10:57 Resp 20 H 06/29/24 07:56 BP 167/85 06/29/24 10:57 Pulse Ox 98 06/29/24 10:57 O2 Del Method Room Air 06/29/24 09:50 06/28/24 06/29/24 06/29/24 22:59 06:59 14:59 Intake Total 1000 / 1000 Balance 1000 / 1000 Weight last 48 hrs Weight 215 lb Physical Exam 2 Narrative: General : Patient is well developed , no acute distress, oriented x3 Head : Normal cephalic, a-traumatic. Ears : Pinnae and external canal are normal. Hearing is normal. Eyes : PERRLA, Sclera and injection are normal. No conjunctival discharge. Nose : Mucous membranes are without erythema. Throat : buccal mucosa is normal, gums are without significant recession or hypertrophy. Lungs : Equal chest rise bilaterally, no use of accessory muscles, trachea is midline. Cor : Rate and rhythm are normal. Abdomen : Soft, ND, tender to palpation around her umbilicus where there is an incarcerated hernia, I was able to reduce this with some effort, no g/r/m Extremities : No edema, no cyanosis or clubbing, dorsalis pedis pulses are present bilaterally, non-tender to palpation of calves. Upper extremities are normal bilaterally. Back : non-tender to palpation, no CVA tenderness. Neuro : CN II - XII intact, Upper and lower extremities have equal and full strength Data 06/29/24 08:09 06/29/24 08:09 A&P Assessment and plan (1) Incisional hernia: Plan Hernia was reduced manually Follow-up in my office as soon as possible for hernia repair Surgically stable for discharge She is told to return to the ER if her pain worsens again Coding Level of Care Code 28573 Diagnoses Incisional hernia K43.2
[2024-06-29] MEDS: ondansetron 2 mg/ML SDV 2 mL 4 MG IVP (12:34)
[2024-06-29] MEDS: morphine 4 mg/mL SDV 1 mL IVP (12:34)
--- NOTE | 2024-06-29 18:02 | DCPLANNER ---
messaged gen surg for er f/u
== END 2024-06-29 14:20 | disposition home or self-care (01) ==
PROVIDERS: Emergency Provider Family Medicine; PCP Nurse Practitioner Family
DX: K42.9 Umbilical hernia without obstruction or gangrene (principal); F17.210 Nicotine dependence, cigarettes, uncomplicated
CPT/HCPCS: 71045; 74176; 80053; 81001; 83605; 83690; 83735; 85025; 93005; 96361; 96374; 96375; 99285; J0360; J2270; J2405; J3490; J7030

== ENCOUNTER → 2024-07-01 09:00 | Outpatient (BNVA) | payer MEDICAID, SELFPAY | PROVIDERS: PCP Nurse Practitioner Family; Visit Provider Surgery | DX: K43.2 Incisional hernia without obstruction or gangrene (principal) | CPT/HCPCS: 99204; 99214 ==

== ENCOUNTER → 2024-07-12 10:49 | Day surgery (SDC) | payer MEDICAID, SELFPAY ==
[2024-07-12] VITALS (10 sets, daily range): BP systolic 135–167; BP diastolic 66–100; PULSE 65–74; RESP 14–25; TEMP 36.3–36.8; O2SAT 92–99; BMI 40.0
--- NOTE | 2024-07-12 11:57 | W.PM.OPSUD ---
Surgery/Procedure H&P Update DATE OF PROCEDURE: July 12, 2024 DATE H&P PERFORMED: 07/01/24 H&P UPDATE INFORMATION: I have reviewed H&P completed within last 30 days, I have examined patient prior to procedure and No changes to prior documentation PLANNED PROCEDURE: Operation Date: 07/12/24 13:35 Proposed Procedures p Laparoscopic Incisional Hernia Repair with mesh [id number], K43.2(Not Applicable) - Ba Alvarado DO
[2024-07-12] MEDS: sodium chloride 0.9% 1,000 ML 30 ML IV (12:01)
--- NOTE | 2024-07-12 13:11 | ANES.PREANE2 ---
Pre-Anesthetic Assessment Height/Weight: Height 1.68 m Weight 112.491 kg Temp Pulse Resp BP Pulse Ox O2 Del Method 97.4 F L 71 18 155/88 97 Room Air 07/12/24 11:30 07/12/24 11:30 07/12/24 11:30 07/12/24 11:30 07/12/24 11:30 07/12/24 11:30 Operation Date: 07/12/24 13:35 Proposed Procedures p Laparoscopic Incisional Hernia Repair with mesh [id number], K43.2(Not Applicable) - Ba Alvarado DO Familial anesthetic complications: None Was Beta Renetta taken within 24 hours: N/A Was Clonidine taken within 24 hours: N/A Last intake: Intake Last Liquid Date 07/11/24 Last Liquid Time 22:00 Last Solid Date 07/10/24 Last Solid Time 17:00 Social Tobacco and No alcohol Exam alert, oriented x 3, clear to auscultation bilaterally and regular rate & rhythm Airway Mallampati: Class III Dentition: chipped CV/HEM Hypertension GI Gastroesophageal Reflux Disease Metabolic Hyperlipidemia Anesthetic Plan ASA status: 3 Anesthesia: General Risk of > 500 ml blood loss (7ml/kg in children): No Medications/Allergies Home Medications Medication Instructions Recorded Confirmed Last Taken Type amlodipine 5 mg tablet 5 mg PO DAILY 01/03/21 07/12/24 07/10/24 History cyanocobalamin (vitamin B-12) 1,000 mcg PO DAILY PRN unknown 01/03/21 07/12/24 07/10/24 History 1,000 mcg capsule hydrochlorothiazide 25 mg tablet 25 mg PO DAILY 01/03/21 07/12/24 07/10/24 History omeprazole 20 mg capsule,delayed 20 mg PO DAILY PRN Acid Reflux 01/03/21 07/12/24 07/10/24 History release simvastatin 10 mg tablet 10 mg PO DAILY 01/03/21 07/12/24 07/10/24 History hydrocodone 5 mg-acetaminophen 325 1 tab PO Q6H PRN pain #20 tabs 06/29/24 07/12/24 07/10/24 Rx mg tablet promethazine 25 mg tablet 25 mg PO Q6H PRN nausea and 06/29/24 07/12/24 Unknown Rx vomiting #20 tabs Allergies Allergy/AdvReac Type Severity Reaction Status Date / Time No Known Allergies Allergy Verified 07/01/24 09:09 Current Medications Generic Name Dose Route Start Last Admin Trade Name Edouard PRN Reason Stop Dose Admin Sodium Chloride 1,000 mls @ 30 mls/hr 07/12/24 11:30 07/12/24 12:01 Sodium Chloride 0.9% IV 07/13/24 11:29 30 mls/hr .Q24H MAURA Administration PFSH Anesthesia Family History Denies family history of Anesthesia complication Bleeding disorder Social History Smoking and tobacco/nicotine status: never used tobacco/nicotine Data Anesthesia Cardiac Studies: No Data to Display
[2024-07-12] MEDS: ceFAZolin 2,000 mg SDV 2000 MG IVP (14:58)
[2024-07-12] MEDS: lidocaine-epi 2% PF 1:200,000 20 mL SDV XX (15:18)
--- NOTE | 2024-07-12 15:45 | P.OP_ITS ---
Operative Report Date of procedure: July 12, 2024 Pre-op diagnosis: Incisional hernia Post-op diagnosis: same Procedure done: Repair of incisional hernia with mesh Implants: 6 inch round Ventralight mesh Specimens removed/disposition: Hernia sac Surgeon: Ba Alvarado DO Estimated blood loss (mL): 5 Complications: None apparent Procedure: Patient was wheeled into the operative room and placed on the OR table in a supine position. Abdomen was inspected prepped and draped in usual sterile fashion. Time-out was performed and all present were in agreement. A 15 blade scalp was used to make a 5 millimeter incision left upper quadrant. A Veress needle was placed into the incision and intra-abdominal insufflation was brought to 15 millimeters of mercury. A 12 millimeter trocar was placed into the left lower quadrant. The energy but device was then used to cut out the hernia sac. The measured 5.2 cm in diameter. There is a second much smaller hernia immediately adjacent to the larger hernia which measured 0.9 cm in diameter. This did not enlarge the longest cross-section of the hernia. A 6 inch ventralight mesh was placed into the abdomen and brought up through the umbilicus using an the Wally-Nilsa. The mesh was then tacked in place in a double crown fashion. The skeleton of the mesh was removed via the left lower quadrant. The hernia sac was then removed from the abdomen via the left lower quadrant. The left lower quadrant port site was closed with an 0 Vicryl suture in a Wally-Nilsa in a [id number] fashion. Incisions were closed with 4 O Vicryl in a subcuticular interrupted fashion. Skin glue was applied. A dressing that included cotton balls and a Tegaderm was placed over the umbil icus. Patient tolerated the procedure well.
--- NOTE | 2024-07-12 16:16 | PC.NURSE ---
1616 - removed oral airway per pt - remains on simple mask
[2024-07-12] MEDS: HYDROcodone-acetaminophen 7.5-325 mg Tablet 1 TAB PO (16:58)
--- NOTE | 2024-07-12 17:10 | ANE.PACU2 ---
Inpatient post-anesthesia follow up: Airway intact: Yes Vital signs: Temperature 97.4 F Pulse Rate 65 Respiratory Rate 18 Blood Pressure 135/100 Pulse Oximetry 98 Oxygen Delivery Me thod Room Air Oxygen Flow Rate 8 Fraction of Inspir ed Oxygen Hydration adequate: Yes Nausea and vomiting: No Pain level: 1 Mental status: Baseline
== END | disposition home or self-care (01) ==
PROVIDERS: PCP Nurse Practitioner Family; Visit Provider Surgery
PROC: 0WQF4ZZ Repair Abdominal Wall, Percutaneous Endoscopic Approach (ICD-10-PCS; CPT 49593; principal; 2024-07-12 13:25)
DX: K43.2 Incisional hernia without obstruction or gangrene (principal); I10 Essential (primary) hypertension; K21.9 Gastro-esophageal reflux disease without esophagitis; E78.5 Hyperlipidemia, unspecified
CPT/HCPCS: 49593; 88302; J0131; J0690; J1100; J1885; J2250; J2405; J2704; J3010; J3490; J7030

== ENCOUNTER → 2024-07-25 14:33 | Outpatient (BNVA) | payer MEDICAID, SELFPAY | PROVIDERS: PCP Nurse Practitioner Family; Visit Provider Surgery | DX: Z98.890 Other specified postprocedural states (principal); Z87.19 Personal history of other diseases of the digestive system | CPT/HCPCS: 99024 ==

== ENCOUNTER 2024-08-05 07:48 | Emergency (ER) | payer MEDICAID, SELFPAY ==
[2024-08-05 07:54] VITALS: BP 159/106; PULSE 73; RESP 17; TEMP 36.6; O2SAT 97; BMI 40.3
--- NOTE | 2024-08-05 07:54 | ED_ITS ---
HPI - Abdominal Pain 2 General: Chief Complaint: Abdominal Pain Stated Complaint: post op, abdominal pain Time Seen by Provider: 08/05/24 07:51 Source: patient Mode of arrival: ambulatory Limitations: no limitations History of Present Illness: Patient is a 58-year-old female presents to ED today with a complaint of right upper quadrant abdominal pain and right flank pain over the past several days. Patient states she recently underwent hernia repair by Dr. Alvarado. She stated date of service was 07/22 but looking at previous documentation it is actually 07/12. She states she has had pain over the past few days but yesterday evening it kept her up all night. She states she has felt nauseous but has not had any episodes of vomiting. She has no fevers. She is status post cholecystectomy. MD elicited complaint: abdominal pain Pertinent past history: other (hernia repair last month) Onset (ago): day(s) Pain Consistency: constant Location: RUQ Severity: severe Radiation: R flank Migration to: no migration Exacerbating factors: nothing Relieving factors: nothing Associated Symptoms: Reports nausea; Denies change in bowel habits, chills, dysuria, fever(s) and vomiting Related Data Home Medications Medication Instructions Recorded Confirmed amlodipine 5 mg tablet 5 mg PO DAILY 01/03/21 08/05/24 cyanocobalamin (vitamin B-12) 1,000 mcg PO DAILY PRN unknown 01/03/21 08/05/24 1,000 mcg capsule hydrochlorothiazide 25 mg tablet 25 mg PO DAILY 01/03/21 08/05/24 omeprazole 20 mg capsule,delayed 20 mg PO DAILY PRN Acid Reflux 01/03/21 08/05/24 release simvastatin 10 mg tablet 10 mg PO DAILY 01/03/21 08/05/24 Previous Rx's Medication Instructions Recorded promethazine 25 mg tablet 25 mg PO Q6H PRN nausea and 06/29/24 vomiting #20 tabs docusate sodium 100 mg capsule 100 mg PO BID #14 caps 07/12/24 (Colace) ciprofloxacin HCl 500 mg tablet 500 mg PO Q12H #14 tabs 08/05/24 (Cipro) Allergies Allergy/AdvReac Type Severity Reaction Status Date / Time No Known Allergies Allergy Verified 07/01/24 09:09 Review of Systems 2 Const: Denies: fever(s), chills, body aches, fatigue or malaise Card: Denies: chest pain Resp: Denies: dyspnea GI: Reports: abdominal pain and nausea; Denies: vomiting or change in bowel habits : Reports: flank pain; Denies: difficulty voiding, dysuria, urinary frequency, urinary urgency or urinary hesitancy Musc: Denies: neck pain, back pain, extremity pain, extremity swelling, joint pain or joint swelling Skin/Breast: Denies: rash Neuro: Denies: headache(s), numbness in extremities, weakness in extremities, sensory changes or dizziness PFSH ED 2 PFSH: Medical History (Reviewed 08/05/24 @ 08: by ISABELL Bauer) Hiatal hernia Hyperlipidemia Accelerated hypertension GERD (gastroesophageal reflux disease) Surgical History (Reviewed 08/05/24 @ 08: by ISABELL Bauer) History of incisional hernia repair History of laparoscopic cholecystectomy History of colonoscopy Family History (Reviewed 08/05/24 @ 08: by ISABELL Bauer) Denies family history of Anesthesia complication Bleeding disorder Social History (Reviewed 08/05/24 @ 08: by ISABELL Bauer) Smoking and tobacco/nicotine status: never used tobacco/nicotine Physical Exam 2 Const: COMMON NORMALS: no acute distress, patient oriented x3, no limitations, alert and well nourished GENERAL APPEARANCE: cooperative NUTRITIONAL APPEARANCE: obese (BMI 40.4) ORIENTATION/CONSCIOUSNESS: Yes awake, Yes oriented to person, Yes oriented to place and Yes oriented to time Eye: COMMON NORMALS: no scleral icterus Neck/C-Spine: GENERAL: Yes normal visual inspection Resp: COMMON NORMALS: normal respiratory effort and clear to auscultation bilaterally AUSCULTATION: clear to auscultation bilaterally Cardio: COMMON NORMALS: regular rate and regular rhythm RATE: regular rate RHYTHM: regular rhythm GI: COMMON NORMALS: Normal to inspection, nondistended, normoactive bowel sounds present, Soft to palpation, No hepatosplenomegaly present and no masses INSPECTION: Yes normal to inspection AUSCULTATION: Yes normoactive bowel sounds PALPATION: Yes Soft to palpation, Yes Tenderness to palpation present (GI) Details: RUQ, No Guarding due to palpation present (GI), No Rigid due to palpation and Yes No hepatosplenomegaly present OTHER: surgical incisions appear clean/well healing : BLADDER/KIDNEY EXAM: Yes CVA tenderness on the right (mild) Back/Pelvis: COMMON NORMALS: thoracic and lumbar spine normal to inspection GENERAL BACK: Yes CVA tenderness CVA tenderness: right Extremity: GENERAL: Yes normal exam except as noted Neuro: DANILO COMA SCALE: document GCS findings Danilo coma scale eye opening: Spontaneous Bastian coma scale verbal response: Orientated Danilo coma scale motor response: Obey commands Bastian coma scale total score: 15 COMMON NORMALS: patient oriented x3, moves all extremities, no focal motor deficits, no sensory deficits noted and gait normal SENSORIUM/ORIENTATION: Yes alert, Yes oriented to person, Yes oriented to place and Yes oriented to time Skin: COMMON NORMALS: no rashes or lesions noted GENERAL SKIN EXAM: no rashes or lesions noted Course 2 Vital Signs: Vital signs: Vital Signs Temperature 97.9 F 08/05/24 07:54 Pulse Rate 72 08/05/24 10:13 Respiratory Rate 20 H 08/05/24 10:13 Blood Pressure 151/96 08/05/24 10:13 Pulse Oximetry 96 08/05/24 10:13 Oxygen Delivery Me thod Room Air 08/05/24 10:13 MDM - Abdominal Pain Medical Decision Making Patient is a nice 58-year-old female here for right upper quadrant/right flank pain over the past few days. Vital signs are stable. Her blood work overall is unremarkable. Her UA is consistent with infection with 2+ leukocyte esterase, 51-100 WBCs, and 4+ bacteria. Will culture and we will place her on antibiotics for a pyelonephritis. CT scan reviewed with patient. Discussed her left renal mass. She is aware of this. She can follow-up with primary care for this. Ventral abdominal wall hernia containing fluid. Umbilical hernia. She is not tender here. This is site of recent hernia repair. Will have CM have her follow up with Dr. Alvarado. Return precautions given. Medical Records I reviewed the patient's medical records. Lab Data I reviewed the patient's lab results. 08/05/24 08:10 08/05/24 08:10 Labs/Radiology: Radiology Impressions Abdomen/Pelvis CT 08/05/24 07:57 IMPRESSION: 1. Ventral abdominal wall hernia containing fluid. 2. Tiny fat containing umbilical hernia. 3. Stable size of indeterminate left exophytic renal mass. This could be further evaluated with a renal ultrasound. Laboratory Results WBC 8.43 10^3/uL (3.29-11.43) 08/05/24 08:10 RBC 4.90 10^6/uL (3.85-5.65) 08/05/24 08:10 Hgb 13.70 g/dL (11.27-16.99) 08/05/24 08:10 Hct 43.3 % (36-47) 08/05/24 08:10 MCV 88.4 fl (85-98) 08/05/24 08:10 MCH 28.0 pg (27-33) 08/05/24 08:10 MCHC 31.6 g/dL (30-55) 08/05/24 08:10 RDW 13.3 % (12.1-15.1) 08/05/24 08:10 Plt Count 257 10^3/cmm (157-399) 08/05/24 08:10 MPV 11.3 fL (7.4-10.4) H 08/05/24 08:10 Neut % (Auto) 60.8 % 08/05/24 08:10 Lymph % (Auto) 27.0 % 08/05/24 08:10 [place] % (Auto) 9.3 % 08/05/24 08:10 Eos % (Auto) 2.3 % 08/05/24 08:10 Baso % (Auto) 0.5 % 08/05/24 08:10 Neut # (Auto) 5.13 10^3/uL (1.8-7.7) 08/05/24 08:10 Lymph # (Auto) 2.3 10^3/uL (0.8-4.8) 08/05/24 08:10 [place] # (Auto) 0.8 10^3/uL (0.2-0.9) 08/05/24 08:10 Eos # (Auto) 0.2 10^3/uL (0.0-0.8) 08/05/24 08:10 Baso # (Auto) 0.0 10^3/uL (0.0-0.1) 08/05/24 08:10 Nucleated RBC % (auto) 0 % 08/05/24 08:10 Nucleated RBCs # 0.0 /100WBC 08/05/24 08:10 Sodium 139 mmol/L (136-145) 08/05/24 08:10 Potassium 4.1 mmol/L (3.5-5.1) 08/05/24 08:10 Chloride 101 mmol/L (98-107) 08/05/24 08:10 Carbon Dioxide 28 mmol/L (22-29) 08/05/24 08:10 Anion Gap 14.1 (5-19) 08/05/24 08:10 BUN 10 mg/dL (8-23) 08/05/24 08:10 Creatinine 0.7 mg/dL (0.5-0.9) 08/05/24 08:10 GFR Calculation 85.4 mL/min (90-130) L 08/05/24 08:10 Glucose 123 mg/dL (65-115) H 08/05/24 08:10 Calculated Osmolality 288 mOsm/kg (285-295) 08/05/24 08:10 Calcium 9.0 mg/dL (8.5-10.5) 08/05/24 08:10 Total Bilirubin 0.4 mg/dL (0.15-1.2) 08/05/24 08:10 AST 29 U/L (0-32) 08/05/24 08:10 ALT 24 U/L (0-33) 08/05/24 08:10 Alkaline Phosphatase 117 U/L (35-105) H 08/05/24 08:10 Total Protein 7.2 g/dL (6.6-8.7) 08/05/24 08:10 Albumin 4.1 g/dL (3.5-5.2) 08/05/24 08:10 Globulin 3.1 g/dL (1.3-4.6) 08/05/24 08:10 Urine Color [place] (Yellow) A 08/05/24 08:10 Urine Appearance Turbid (CLEAR) A 08/05/24 08:10 Urine pH 5.0 (5-7) 08/05/24 08:10 Ur Specific [place] 1.024 (1.005-1.030) 08/05/24 08:10 Urine Protein Trace (Negative) A 08/05/24 08:10 Urine Glucose (UA) Negative (Normal) 08/05/24 08:10 Urine Ketones Trace (Negative) 08/05/24 08:10 Urine Blood Negative (Negative) 08/05/24 08:10 Urine Nitrate Negative (Negative) 08/05/24 08:10 Urine Bilirubin 1+ (Negative) H 08/05/24 08:10 Urine Urobilinogen 1.0 mg/dL (Negative) 08/05/24 08:10 Ur Leukocyte Esterase 2+ (Negative) A 08/05/24 08:10 Urine RBC 0-2 /hpf (0-2) 08/05/24 08:10 Urine WBC 51-100 /hpf (0-5) H 08/05/24 08:10 Ur Squamous Epith Cells 11-20 /hpf (0-5) 08/05/24 08:10 Amorphous Sediment Not Reportable 08/05/24 08:10 Urine Bacteria 4+ /hpf (NONE) H 08/05/24 08:10 Hyaline Casts 3.71 /lpf 08/05/24 08:10 All radiology interpretation(s) finalized by discharge Discharge Plan Discharge Patient Disposition: Home Clinical Impression: Pyelonephritis of right kidney Condition: Stable Prescriptions: New ciprofloxacin HCl [Cipro] 500 mg tablet 500 mg PO Q12H Qty: 14 0RF No Action omeprazole 20 mg capsule,delayed release(DR/EC) 20 mg PO DAILY PRN (Reason: Acid Reflux) cyanocobalamin (vitamin B-12) 1,000 mcg capsule 1,000 mcg PO DAILY PRN (Reason: unknown) amlodipine 5 mg tablet 5 mg PO DAILY simvastatin 10 mg tablet 10 mg PO DAILY hydrochlorothiazide 25 mg tablet 25 mg PO DAILY promethazine 25 mg tablet 25 mg PO Q6H PRN (Reason: nausea and vomiting) Qty: 20 0RF docusate sodium [Colace] 100 mg capsule 100 mg PO BID Qty: 14 0RF Discharge Orders: Discharge ED (Routine); Ordered 08/05/24 Ordered By: Trinidad Dickey Referrals: Emma Michel, TURP[facility] FARMER [Primary Care Provider] - Patient Instructions: Urinary Tract Infection in Women (DC), Kidney Infection (ED), Pyelonephritis Activity Restrictions/Additional Instructions: As we discussed, please fill your antibiotics and start them immediately. You need to return to the emergency department for worsening pain, repetitive episodes of vomiting, inability to hold down your antibiotics, fevers, generally feeling worse or unwell, or any other concerns you may have. Please follow-up with primary care next week for reevaluation. Coding Level of Care Code ED Lab Scientist for [facility]
--- NOTE | 2024-08-05 07:57 | CTR_ITS ---
PROCEDURE INFORMATION: Exam: CT Abdomen And Pelvis With Contrast Exam date and time: 08/05/2024 9:05 AM Age: 58 years old Clinical indication: Abdominal pain; Localized; Right upper quadrant (ruq); Prior surgery; Surgery date: 3-7 days post-operative; Surgery type: Henriasexsex; Patient HX: LIZBETH had hernia surgery on 07/22. PT states she has had severe pain in her ruq that radiates to her back that has been going on for a couple days. PT denies nausea or vomiting. PT denies urinary issues. PT states her pain is similar to her pain prior to her surgery. ; Additional info: Ruq/r flank; Abdominal pain; Recent hernia repair TECHNIQUE: Imaging protocol: Computed tomography of the abdomen and pelvis with contrast. Radiation optimization: All CT scans at this facility use at least one of these dose optimization techniques: automated exposure control; mA and/or kV adjustment per patient size (includes targeted exams where dose is matched to clinical indication); or iterative reconstruction. Contrast material: OMNI 350; Contrast volume: 100 ml; Contrast route: INTRAVENOUS (IV); COMPARISON: CT abdomen pelvis wo con [id number] 06/29/2024 8:23 AM RADIATION DOSE METRICS: Total DLP (mGy-cm): 1160.87 FINDINGS: Liver: Normal appearance of the liver. Gallbladder and biliary ducts: Status post cholecystectomy. Pancreas: No ductal dilation. Spleen: Unremarkable. Adrenal glands: Unremarkable. Kidneys and ureters: No hydronephrosis. Redemonstrated 1.4 cm exophytic left renal mass with attenuation of 40 HU, indeterminate. Stomach and bowel: Colonic diverticulosis without diverticulitis. Appendix: Normal appendix. Intraperitoneal space: No free air. No significant fluid collection. Vasculature: Unremarkable. Lymph nodes: No enlarged lymph nodes. Urinary bladder: Unremarkable as visualized. Reproductive: Unremarkable as visualized. Bones/joints: Degenerative disc disease at L5-S1. Soft tissues: Ventral abdominal wall hernia containing fluid. Tiny fat containing umbilical hernia more inferiorly with 1.5 x 2.5 cm soft tissue nodule just lateral to this, which appears to reflect evolving fat necrosis compared to prior. CT/CT abdomen pelvis w con* [id number] IMPRESSION: 1. Ventral abdominal wall hernia containing fluid. 2. Tiny fat containing umbilical hernia. 3. Stable size of indeterminate left exophytic renal mass. This could be further evaluated with a renal ultrasound.
[2024-08-05 07:58] VITALS: BP 135/92; PULSE 74; RESP 20; O2SAT 95
[2024-08-05 08:15] VITALS: RESP 22; O2SAT 97
[2024-08-05] MEDS: ondansetron 2 mg/ML SDV 2 mL 4 MG IVP (08:15)
[2024-08-05] MEDS: morphine 4 mg/mL SDV 1 mL IVP (08:15)
[2024-08-05 08:23] LABS: Basophils % 0.5 %; Eosinophils # 0.2 10^3/uL (0.0-0.8); Eosinophils % 2.3 %; Hematocrit 43.3 % (36-47); Lymphocytes # 2.3 10^3/uL (0.8-4.8); Mean Corpuscular HGB Conc 31.6 g/dL (30-55); Mean Corpuscular Volume 88.4 fl (85-98); Mean Platelet Volume 11.3 fL (7.4-10.4); Monocytes # 0.8 10^3/uL (0.2-0.9); Monocytes % 9.3 %; Neutrophils # 5.13 10^3/uL (1.8-7.7); Neutrophils % 60.8 %; Nucleated Red Blood Cells % 0 %; Platelet Count 257 10^3/cmm (157-399); Red Cell Distribution Width 13.3 % (12.1-15.1); White Blood Count 8.43 10^3/uL (3.29-11.43)
[2024-08-05 08:30] LABS: Bilirubin Urine 1+ (Negative); Blood Urine Negative (Negative); Glucose Urine UA Negative (Normal); Ketones Urine Trace (Negative); Leukocyte Esterase Urine 2+ (Negative); Nitrate Urine Negative (Negative); Protein Urine Trace (Negative); Specific Gravity, Urine 1.024 (1.005-1.030); Urine Appearance Turbid (CLEAR)
[2024-08-05 08:33] LABS: Add Urine Microscopic? YES; Bacteria Urine 4+ /hpf; Hyaline Casts Urine 3.71 /lpf; RBC Urine 0-2 /hpf (0-2); WBC Urine 51-100 /hpf (0-5)
[2024-08-05 08:36] LABS: Add Urine Culture? Yes; Urine Color Orange (Yellow)
[2024-08-05 08:42] LABS: Alanine Aminotransferase 24 U/L (0-33); Albumin Level 4.1 g/dL (3.5-5.2); Alkaline Phosphatase 117 U/L (35-105); Anion Gap 14.1 (5-19); Aspartate Amino Transferase 29 U/L (0-32); Blood Urea Nitrogen 10 mg/dL (8-23); Carbon Dioxide 28 mmol/L (22-29); Chloride 101 mmol/L (98-107); Creatinine Clr Calc Pharmacy 109.2037; Globulin 3.1 g/dL (1.3-4.6); Glomerular Filtration Rate 85.4 mL/min (90-130); Glucose 123 mg/dL (65-115); Osmolality Calculated 288 mOsm/kg (285-295); Potassium 4.1 mmol/L (3.5-5.1); Sodium 139 mmol/L (136-145); Total Bilirubin 0.4 mg/dL (0.15-1.2); Total Protein 7.2 g/dL (6.6-8.7)
[2024-08-05] MEDS: iohexol 350 mg/mL 500 mL Btl (per mL) IV (09:10)
[2024-08-05 09:28] VITALS: BP 135/86; PULSE 73; O2SAT 93
[2024-08-05] MEDS: cefTRIAXone 1,000 mg SDV 1000 MG IVP (10:12)
[2024-08-05 10:13] VITALS: BP 151/96; PULSE 72; RESP 20; O2SAT 96
[2024-08-05 10:21] VITALS: BP 151/96; PULSE 72; RESP 18; O2SAT 95
--- NOTE | 2024-08-05 10:46 | DCPLANNER ---
message sent to gen surg for er f/u
== END 2024-08-05 10:23 | disposition home or self-care (01) ==
PROVIDERS: Emergency Provider Physician Assistant; PCP Nurse Practitioner Family
DX: N12 Tubulo-interstitial nephritis, not specified as acute or chronic (principal); I10 Essential (primary) hypertension
CPT/HCPCS: 74177; 80053; 81001; 85025; 87086; 96374; 96375; 99285; J0696; J2270; J2405

== ENCOUNTER → 2024-08-15 14:11 | Outpatient (BNVA) | payer MEDICAID, SELFPAY | PROVIDERS: PCP Nurse Practitioner Family; Visit Provider Surgery | DX: R03.0 Elevated blood-pressure reading, without diagnosis of hypertension (principal); Z98.890 Other specified postprocedural states; Z87.19 Personal history of other diseases of the digestive system; N28.89 Other specified disorders of kidney and ureter | CPT/HCPCS: 99024 ==

== ENCOUNTER 2024-11-07 09:21 | Emergency (ER) | payer MEDICAID, SELFPAY ==
[2024-11-07 09:33] VITALS: BP 140/65; PULSE 90; RESP 17; TEMP 37.3; O2SAT 93; BMI 33.0
--- NOTE | 2024-11-07 09:49 | PC.PHAR ---
elias confirms medications but when asked about the last fill dates 03/18/24 she said she needs to go see the provider before they give more refills so patient hasnt has medications in 6+ months
[2024-11-07 09:51] VITALS: O2SAT 88
--- NOTE | 2024-11-07 09:51 | XRR_ITS ---
PROCEDURE INFORMATION: Exam: XR Chest Exam date and time: 11/07/2024 9:52 AM Age: 59 years old Clinical indication: Cough and dyspnea; Additional info: Dyspnea/cough TECHNIQUE: Imaging protocol: Radiologic exam of the chest. Views: 1 view. COMPARISON: CR XR chest 1V portable [id number] 06/29/2024 8:14 AM FINDINGS: Lungs: Minimal atelectasis or infiltrate in the right lower lobe. Pleural spaces: Unremarkable. No pleural effusion. No pneumothorax. Heart/Mediastinum: Borderline cardiomegaly. Bones/joints: Unremarkable. XR/XR chest 1V portable [id number] IMPRESSION: Minimal opacity at the right lung base.
--- NOTE | 2024-11-07 10:11 | ED_ITS ---
HPI - COVID General: Chief Complaint: COVID symptoms Stated Complaint: SOB Time Seen by Provider: 11/07/24 09:23 Source: patient and family Mode of arrival: ambulatory Limitations: no limitations Triage information: Has fever, cough or shortness of breath . No known COVID + exposure last 14 days History of Present Illness: Patient is a 59-year-old female presents to ED today along with family for evaluation of cough, shortness of breath, fevers. Patient states she initially began getting sick 3 weeks ago but states she got better and then began feeling significantly worse yesterday. She arrives with a temperature of 99.2 but she tells me that her fever got up to 104?106 throughout the evening. She is an everyday smoker. She is complaining of fatigue, body aches, chills, and a productive cough. She has not had any vomiting or diarrhea. MD complaint: has COVID symptoms Prior covid testing: no COVID 19 common symptoms: positive fever(s), chills, productive cough, dyspnea, fatigue and body aches; negative headache(s), throat pain, nasal congestion, vomiting or diarrhea COVID 19 other sytmptoms: negative chest pain or dizziness Onset (ago): day(s) Severity: severe Treatment prior to arrival: none COVID Results: SARS-CoV-2 Antigen (Rapid) Positive (Negative) H 07/01/23 03:3 0 Coronavirus (PCR) Negative (Negative) 11/07/24 10:10 Related Data Home Medications Medication Instructions Recorded Confirmed amlodipine 5 mg tablet 5 mg PO DAILY 01/03/21 11/07/24 hydrochlorothiazide 25 mg tablet 25 mg PO DAILY 01/03/21 11/07/24 simvastatin 10 mg tablet 10 mg PO DAILY 01/03/21 11/07/24 Previous Rx's Medication Instructions Recorded albuterol sulfate 90 mcg/actuation 2 inh inhalation Q4H PRN shortness 11/07/24 aerosol inhaler of breath or wheezing #6.7 grams dexamethasone 6 mg tablet 6 mg PO DAILY #6 tabs 11/07/24 oseltamivir 75 mg capsule (Tamiflu) 75 mg PO BID 5 days #10 caps 11/07/24 Allergies Allergy/AdvReac Type Severity Reaction Status Date / Time No Known Allergies Allergy Verified 11/07/24 09:39 Review of Systems Const: Reports: fever(s), chills, body aches and fatigue Eyes: Denies: change in vision, blurry vision, photophobia, floaters or seeing flashes ENMT: Denies: throat pain, odynophagia, ear or mastoid pain, nasal discharge, nasal congestion or sinus pain Card: Denies: chest pain or edema Resp: Reports: dyspnea, productive cough and chest congestion; Denies: wheezing or hemoptysis GI: Denies: abdominal pain, vomiting or diarrhea : Denies: flank pain or dysuria Musc: Denies: neck pain, back pain, extremity pain, extremity swelling, joint pain or joint swelling Skin/Breast: Denies: rash Neuro: Denies: headache(s), numbness in extremities, weakness in extremities, sensory changes or dizziness PFSH ED PFSH: Medical History Hiatal hernia Hyperlipidemia Accelerated hypertension GERD (gastroesophageal reflux disease) Surgical History History of incisional hernia repair History of laparoscopic cholecystectomy History of colonoscopy Family History Denies family history of Anesthesia complication Bleeding disorder Social History Smoking and tobacco/nicotine status: current every day tobacco/nicotine user cigarettes Packs smoked per day: 1 Physical Exam Const: COMMON NORMALS: patient oriented x3, no limitations, alert and well nourished GENERAL APPEARANCE: cooperative and ill appearing ORIENTATION/CONSCIOUSNESS: Yes awake, Yes oriented to person, Yes oriented to place and Yes oriented to time HENMT: COMMON NORMALS: normocephalic and atraumatic HEAD & SCALP: normal to inspection, normocephalic and atraumatic Neck/C-Spine: COMMON NORMALS: no JVD Chest: COMMONS NORMALS: normal inspection of the chest and normal palpation of entire chest wall Resp: COMMON NORMALS: normal respiratory effort AUSCULTATION: rhonchi Cardio: COMMON NORMALS: no JVD, regular rate and regular rhythm RATE: regular rate RHYTHM: regular rhythm GI: COMMON NORMALS: Normal to inspection, nondistended, normoactive bowel sounds present, Soft to palpation and non-tender PALPATION: Yes Soft to palpation : COMMON NORMALS: Yes no CVA tenderness BLADDER/KIDNEY EXAM: Yes no CVA tenderness Back/Pelvis: COMMON NORMALS: no CVA tenderness Extremity: COMMON NORMALS: capillary refill normal, no clubbing, cyanosis or edema, no calf tenderness and no pedal edema Neuro: DANILO COMA SCALE: document GCS findings [place] coma scale eye opening: Spontaneous [place] coma scale verbal response: Orientated Danilo coma scale motor response: Obey commands [place] coma scale total score: 15 COMMON NORMALS: patient oriented x3 SENSORIUM/ORIENTATION: Yes alert, Yes oriented to person, Yes oriented to place and Yes oriented to time Skin: COMMON NORMALS: no rashes or lesions noted GENERAL SKIN EXAM: no rashes or lesions noted Course Vital Signs: Vital signs: Vital Signs Temperature 99.2 F 11/07/24 09:33 Pulse Rate 89 11/07/24 12:28 Respiratory Rate 18 11/07/24 10:29 Blood Pressure 152/93 11/07/24 12:28 Pulse Oximetry 98 11/07/24 12:28 Oxygen Delivery Me thod Room Air 11/07/24 10:29 Oxygen Flow Rate 3 11/07/24 11:38 [facility] - COVID Medical Decision Making Patient here for flu like symptoms. She is positive for influenza A. Vital signs are stable apart from she intermittently would require 1 to 2 L of oxygen. At other times she would sat normally on room air. Lab work not indicated at this time. CXR showing minimal opacity-most likely viral given her influenza. Patient will be placed on tamiflu, albuterol, dexamethasone. She was sent home with home oxygen. Strict return precautions discussed. Medical Records I reviewed the patient's medical records. Lab Data I reviewed the patient's lab results. Radiology Impressions Chest X-Ray 11/07/24 09:51 IMPRESSION: Minimal opacity at the right lung base. Laboratory Results Coronavirus (PCR) Negative (Negative) 11/07/24 10:10 Influenza A (PCR) Positive (Negative) 11/07/24 10:10 Influenza Type B (PCR) Negative (Negative) 11/07/24 10:10 RSV (PCR) Negative (Negative) 11/07/24 10:10 SARS-CoV-2 Antigen (Rapid) Positive (Negative) H 07/01/23 03:3 0 Coronavirus (PCR) Negative (Negative) 11/07/24 10:10 All radiology interpretation(s) finalized by discharge Discharge Plan Discharge Patient Disposition: Home Clinical Impression: Influenza A Condition: Stable Prescriptions: New oseltamivir [Tamiflu] 75 mg capsule 75 mg PO BID 5 Days Qty: 10 0RF dexamethasone 6 mg tablet 6 mg PO DAILY Qty: 6 0RF albuterol sulfate 90 mcg/actuation HFA aerosol inhaler 2 inh INHALATION Q4H PRN (Reason: shortness of breath or wheezing) Qty: 6.7 0RF No Action amlodipine 5 mg tablet 5 mg PO DAILY simvastatin 10 mg tablet 10 mg PO DAILY hydrochlorothiazide 25 mg tablet 25 mg PO DAILY Discharge Orders: Discharge ED (Routine); Ordered 11/07/24 Ordered By: Trinidad Dickey Other Ambulatory Orders: DME: Oxygen (Order) Location: None Selected Ordered By: Trinidad Dickey Referrals: Emma Michel FNP [Primary Care Provider] - Patient Instructions: Influenza (DC) Activity Restrictions/Additional Instructions: As we discussed, you are positive for influenza A. We will place you on Tamiflu along with give you an inhaler and steroids. You did qualify for home oxygen. DO NOT SMOKE WHILE USING YOUR OXYGEN. As we discussed, lots of rest, fluids, Tylenol and Motrin for fevers and body aches. You need to return to the emergency department for worsening symptoms, shortness of breath, difficulty breathing, or any other concerns you may have. Coding Level of Care Code ED [employer] Reviewer for Clementine Albright
[2024-11-07 10:29] VITALS: PULSE 71; RESP 18; O2SAT 90
[2024-11-07] MEDS: ipratropium-albuterol 3 mL Neb INHALATION (10:32)
[2024-11-07 10:34] VITALS: PULSE 77
[2024-11-07 11:03] LABS: Covid PCR NEGATIVE (Negative); Influenza A POSITIVE (Negative); Influenza B NEGATIVE (Negative); Respiratory Syncytial Virus Ce NEGATIVE (Negative)
[2024-11-07 11:38] VITALS: O2SAT 88; O2SAT 95
[2024-11-07 12:28] VITALS: BP 152/93; PULSE 89; O2SAT 98
== END 2024-11-07 12:29 | disposition home or self-care (01) ==
PROVIDERS: Family Medicine; Emergency Provider Physician Assistant; PCP Nurse Practitioner Family
DX: J10.1 Influenza due to other identified influenza virus with other respiratory manifestations (principal); Z11.52 Encounter for screening for COVID-19; F17.210 Nicotine dependence, cigarettes, uncomplicated; E78.5 Hyperlipidemia, unspecified
CPT/HCPCS: 71045; 87637; 94640; 94760; 99284

== ENCOUNTER 2024-12-05 11:36 | Outpatient (CLI) | payer MEDICAID, SELFPAY ==
--- NOTE | 2024-12-05 11:40 | MM_ITS ---
WS: [id number] BILATERAL 3D TOMOSYNTHESIS DIGITAL SCREENING MAMMOGRAPHY WITH CAD CLINICAL INFORMATION: SCREENING HISTORY: Screening mammogram. No current complaints. COMPARISON: 2020 TECHNIQUE: Bilateral CC and MLO views. FINDINGS: Scattered fibroglandular densities bilaterally. No suspicious focal mass, asymmetry, calcifications, or architectural distortion. No evidence of malignancy. Incidental punctate and lucent centered calcifications. MM/MM scr tomosynthesis [id number] IMPRESSION: DENSITY: There are scattered areas of fibroglandular density. BI-RADS: 2 - Benign. FOLLOW UP: 1 Year Follow-up Recommend return to annual screening mammography.
== END 2024-12-05 11:37 | disposition home or self-care (01) ==
PROVIDERS: PCP Nurse Practitioner Family; Visit Provider Nurse Practitioner Family
DX: Z12.31 Encounter for screening mammogram for malignant neoplasm of breast (principal); R92.323 Mammographic fibroglandular density, bilateral breasts; R92.1 Mammographic calcification found on diagnostic imaging of breast
CPT/HCPCS: 77063; 77067

== ENCOUNTER 2024-12-13 14:37 | Outpatient (CLI) | payer MEDICAID, SELFPAY ==
--- NOTE | 2024-12-13 14:43 | US_ITS ---
WS: [id number] RENAL ULTRASOUND HISTORY: renal mass COMPARISON: 12/27/2018, CT 08/05/2024 TECHNIQUE: 2-D and color Doppler imaging of the kidney submitted. Right kidney: 11.7 cm x 5.5 cm x 4.7 cm. Cortex: 1.1 cm Normal echogenicity with no hydronephrosis or mass. Left kidney: 10.3 cm x 4.9 cm x 5.5 cm. Cortex: 1.0 cm Normal size kidney. No hydronephrosis. Exophytic cyst from the superior pole measures 1.4 x 1.4 x 1.2 cm. Aorta: Normal. Urinary Bladder: Nondistended. US/US renal BI* [id number] IMPRESSION: 1. No cortical thinning or renal atrophy. 2. No hydronephrosis. 3. Exophytic cyst superior pole LEFT kidney, 1.4 cm.
== END 2024-12-13 14:38 | disposition home or self-care (01) ==
PROVIDERS: PCP Nurse Practitioner Family; Visit Provider Nurse Practitioner Family
DX: N28.89 Other specified disorders of kidney and ureter (principal); N28.1 Cyst of kidney, acquired
CPT/HCPCS: 76770

== ENCOUNTER 2025-02-18 19:12 | Emergency (ER) | payer MEDICAID, SELFPAY ==
[2025-02-18 19:18] VITALS: BP 150/77; PULSE 96; RESP 20; TEMP 36.5; O2SAT 96; BMI 34.4
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
[2025-02-18] MEDS: iohexol 350 mg/mL 500 mL Btl (per mL) IV (20:37)
[2025-02-18] MEDS: morphine 4 mg/mL SDV 1 mL IVP ×2 (21:10→22:53)
[2025-02-18] MEDS: ondansetron 2 mg/ML SDV 2 mL 4 MG IVP (21:10)
[2025-02-18] MEDS: lidocaine 1% 10 ML INJ 20 ML INTRADERMA (21:49)
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
[2025-02-18] MEDS: tetanus-dipt-pertussis 0.5 mL SDV IM (22:53)
[2025-02-18] MEDS: cephALEXin 500 mg Capsule PO (22:53)
== END 2025-02-18 23:06 | disposition home or self-care (01) ==
PROVIDERS: Emergency Provider Emergency Medicine; PCP Nurse Practitioner Family
DX: S22.41XA Multiple fractures of ribs, right side, initial encounter for closed fracture (principal); S51.012A Laceration without foreign body of left elbow, initial encounter; S81.812A Laceration without foreign body, left lower leg, initial encounter; S61.411A Laceration without foreign body of right hand, initial encounter; R51.9 Headache, unspecified; S80.01XA Contusion of right knee, initial encounter; F17.210 Nicotine dependence, cigarettes, uncomplicated; E78.5 Hyperlipidemia, unspecified; I10 Essential (primary) hypertension; Z79.899 Other long term (current) drug therapy; V86.99XA Unspecified occupant of other special all-terrain or other off-road motor vehicle injured in nontraffic accident, initial encounter
CPT/HCPCS: 12034; 70450; 70486; 71260; 72125; 73080; 73552; 73562; 73590; 74177; 90471; 90715; 96374; 96375; 96376; 99285; J2270; J2405; J9999

== ENCOUNTER → 2025-03-13 07:55 | Outpatient (BNVA) | payer MEDICAID, SELFPAY | PROVIDERS: PCP Nurse Practitioner Family; Visit Provider Thoracic Surgery (Cardiothoracic Vascular Surgery) | DX: I96 Gangrene, not elsewhere classified (principal); S81.802A Unspecified open wound, left lower leg, initial encounter; W22.8XXA Striking against or struck by other objects, initial encounter; S80.221A Blister (nonthermal), right knee, initial encounter; X58.XXXA Exposure to other specified factors, initial encounter | CPT/HCPCS: 11042; 99213 ==

== ENCOUNTER → 2025-03-20 09:14 | Outpatient (BNVA) | payer MEDICAID, SELFPAY | PROVIDERS: PCP Nurse Practitioner Family; Visit Provider Thoracic Surgery (Cardiothoracic Vascular Surgery) | DX: I96 Gangrene, not elsewhere classified (principal); S81.802D Unspecified open wound, left lower leg, subsequent encounter; W22.8XXD Striking against or struck by other objects, subsequent encounter; S80.221D Blister (nonthermal), right knee, subsequent encounter; X58.XXXD Exposure to other specified factors, subsequent encounter | CPT/HCPCS: 11042 ==

== ENCOUNTER → 2025-03-27 09:40 | Outpatient (BNVA) | payer MEDICAID, SELFPAY | PROVIDERS: PCP Nurse Practitioner Family; Visit Provider Thoracic Surgery (Cardiothoracic Vascular Surgery) | DX: E11.52 Type 2 diabetes mellitus with diabetic peripheral angiopathy with gangrene (principal); E11.622 Type 2 diabetes mellitus with other skin ulcer; L97.821 Non-pressure chronic ulcer of other part of left lower leg limited to breakdown of skin; Z09 Encounter for follow-up examination after completed treatment for conditions other than malignant neoplasm | CPT/HCPCS: 97597; A6248 ==

== ENCOUNTER → 2025-04-03 09:23 | Outpatient (BNVA) | payer MEDICAID, SELFPAY | PROVIDERS: PCP Nurse Practitioner Family; Visit Provider Thoracic Surgery (Cardiothoracic Vascular Surgery) | DX: I96 Gangrene, not elsewhere classified (principal); S81.802D Unspecified open wound, left lower leg, subsequent encounter; W22.8XXD Striking against or struck by other objects, subsequent encounter | CPT/HCPCS: 97597; A6210 ==

== ENCOUNTER → 2025-04-10 09:51 | Outpatient (BNVA) | payer MEDICAID, SELFPAY | PROVIDERS: PCP Nurse Practitioner Family; Visit Provider Thoracic Surgery (Cardiothoracic Vascular Surgery) | DX: I96 Gangrene, not elsewhere classified (principal); S81.802D Unspecified open wound, left lower leg, subsequent encounter; W22.8XXD Striking against or struck by other objects, subsequent encounter | CPT/HCPCS: 97597 ==

== ENCOUNTER → 2025-04-24 10:44 | Outpatient (BNVA) | payer MEDICAID, SELFPAY | PROVIDERS: PCP Nurse Practitioner Family; Visit Provider Thoracic Surgery (Cardiothoracic Vascular Surgery) | DX: I96 Gangrene, not elsewhere classified (principal); S81.802D Unspecified open wound, left lower leg, subsequent encounter; W22.8XXD Striking against or struck by other objects, subsequent encounter ==

== ENCOUNTER → 2025-05-01 10:19 | Outpatient (BNVA) | payer MEDICAID, SELFPAY | PROVIDERS: PCP Nurse Practitioner Family; Visit Provider Thoracic Surgery (Cardiothoracic Vascular Surgery) | DX: I96 Gangrene, not elsewhere classified (principal); L97.821 Non-pressure chronic ulcer of other part of left lower leg limited to breakdown of skin | CPT/HCPCS: 97597; A6210 ==